=== PATIENT | male | born 2000 | race American Indian/Alaskan Native ===

== ENCOUNTER 2022-06-05 18:13 | Emergency (ER) | payer SELFPAY ==
[2022-06-05 20:28] LABS: Color,Urine Yellow (Yellow)
[2022-06-05 20:29] LABS: Bilirubin,Urine Negative (Negative); Blood,Urine Negative (Negative); Urobilinogen,Urine 0.2 mg/dL (<2.0)
[2022-06-05 20:33] LABS: Bacteria,Urine 2+ /HPF (Negative); Granular Casts,Urine 16 /LPF; Hyaline Casts,Urine 1 /LPF; Mucus,Urine 3+ /HPF; Sperm,Urine 2+ /HPF (NP)
[2022-06-05 20:38] LABS: Amphetamine Screen,Urine Negative; Benzodiazepines Screen,Urine Negative; Cocaine Screen,Urine Negative; Methadone Screen,Urine Negative; Opiate Screen,Urine Negative
[2022-06-05 20:52] LABS: Cannabinoid Screen,Urine Positive
--- NOTE | 2022-06-05 21:48 | Emergency Department Report ---
ED General Adult HPI - General Chief complaint: Psych Stated complaint: PSYCHOSIS BEHAVOIRAL EPISODES Time Seen by Provider: 06/05/22 20:10 Source: patient, EMS Mode of arrival: Stretcher Limitations: No Limitations - History of Present Illness Initial comments: Patient presents to the emergency department for psychosis. Patient states he has a history of schizophrenia and states that his roommates call the paramedics today because he was speaking to people who were not there. Patient states that he has family member speaking to him. Patient also states that he has pain in his penis from a microchip that was placed after his COVID-vaccine 5 years ago. -: unknown Severity scale (0 -10): 0 Consistency: constant Improves with: none Worsens with: none Associated Symptoms: denies other symptoms Treatments Prior to Arrival: none - Related Data Allergies Allergy/AdvReac Type Severity Reaction Status Date / Time No Known Allergies Allergy Verified 06/05/22 18:17 ED Review of Systems ROS: Stated complaint: PSYCHOSIS BEHAVOIRAL EPISODES Other details as noted in HPI Comment: All other systems reviewed and negative Constitutional: denies: chills, fever Eyes: denies: eye pain, eye discharge, vision change ENT: denies: ear pain, throat pain Respiratory: denies: cough, shortness of breath, wheezing Cardiovascular: denies: chest pain, palpitations Endocrine: no symptoms reported Gastrointestinal: denies: abdominal pain, nausea, diarrhea Genitourinary: denies: urgency, dysuria Musculoskeletal: denies: back pain, joint swelling, arthralgia Skin: denies: rash, lesions Neurological: denies: headache, weakness, paresthesias Psychiatric: auditory hallucinations. denies: anxiety, depression, visual hallucinations, homicidal thoughts, suicidal thoughts Hematological/Lymphatic: denies: easy bleeding, easy bruising ED Past Medical Hx - Social History Smoking Status: Current Every Day Smoker Substance Use Type: Marijuana ED Physical Exam - General Limitations: No Limitations General appearance: alert, in no apparent distress - Head Head exam: Present: atraumatic, normocephalic - Eye Eye exam: Present: normal appearance, PERRL, EOMI - ENT ENT exam: Present: mucous membranes moist - Neck Neck exam: Present: normal inspection - Respiratory Respiratory exam: Present: normal lung sounds bilaterally. Absent: respiratory distress - Cardiovascular Cardiovascular Exam: Present: regular rate, normal rhythm. Absent: systolic murmur, diastolic murmur, rubs, gallop - GI/Abdominal GI/Abdominal exam: Present: soft, normal bowel sounds. Absent: distended, tenderness - Rectal Rectal exam: Present: deferred - Extremities Exam Extremities exam: Present: normal inspection - Back Exam Back exam: Present: normal inspection - Neurological Exam Neurological exam: Present: alert, oriented X3, CN II-XII intact. Absent: motor sensory deficit - Psychiatric Psychiatric exam: Present: normal affect, normal mood - Skin Skin exam: Present: warm, dry, intact, normal color. Absent: rash ED Course Vital Signs 06/05/22 06/05/22 18:15 19:57 Temperature 98.9 F 98.7 F Pulse Rate 80 101 H Respiratory 18 18 Rate Blood Pressure 140/86 113/69 [Left] O2 Sat by Pulse 96 98 Oximetry ED Medical Decision Making - Lab Data Result diagrams: 06/05/22 21:17 06/05/22 21:17 Lab Results 06/05/22 06/05/22 Range/Units Unknown Unknown Urine Color Yellow (Yellow) Urine Turbidity Clear (Clear) Urine pH 7.0 (5.0-7.0) Ur Specific [place] 1.015 (1.003-1.030) Urine Protein 30 mg/dl (Negative) mg/dL Urine Glucose (UA) Negative (Negative) mg/dL Urine Ketones Negative (Negative) mg/dL Urine Blood Negative (Negative) Urine Nitrite Negative (Negative) Urine Bilirubin Negative (Negative) Urine Urobilinogen 0.2 (<2.0) mg/dL Ur Leukocyte Esterase Negative (Negative) Urine WBC (Auto) 6.0 (0.0-6.0) /HPF Urine RBC (Auto) 45.0 (0.0-6.0) /HPF U Epithel Cells (Auto) < 1.0 (0-13.0) /HPF Urine Bacteria (Auto) 2+ (Negative) /HPF Hyaline Casts 1 /LPF Granular Casts 16 /LPF Urine Mucus 3+ /HPF Urine Yeast (Budding) 1+ /HPF Urine Sperm 2+ (RING PACKER) /HPF Urine Opiates Screen Negative Urine Methadone Screen Negative Ur Barbiturates Screen Negative Ur Phencyclidine Scrn Negative Ur Amphetamines Screen Negative U Benzodiazepines Scrn Negative Urine Cocaine Screen Negative U Marijuana (THC) Screen Positive Drugs of Abuse Note Disclamer - Medical Decision Making 1013 applied ED hold applied Patient is medically cleared Awaiting mental health evaluation Critical care attestation.: If time is entered above; I have spent that time in minutes in the direct care o f this critically ill patient, excluding procedure time. ED Disposition Clinical Impression: Psychosis Disposition: [address] [place] [address] Is pt being admited?: No Does the pt Need Aspirin: No Condition: Stable
[2022-06-05 22:16] LABS: Basophils % (Auto) 0.4 % (0.0-1.8); Eosinophils # (Auto) 0.1 K/mm3 (0.0-0.4); Eosinophils % (Auto) 0.8 % (0.0-4.3); Hematocrit 42.5 % (35.5-45.6); Hemoglobin 14.4 gm/dl (11.8-15.2); Lymphocytes # (Auto) 3.1 K/mm3 (1.2-5.4); Lymphocytes % (Auto) 31.8 % (13.4-35.0); Mean Corpuscular HGB Conc 34 % (32-34); Mean Corpuscular Volume 86 fl (84-94); Monocytes # (Auto) 0.8 K/mm3 (0.0-0.8); Platelet Count 211 K/mm3 (140-440); Red Blood Count 4.95 M/mm3 (3.65-5.03); Red Cell Distribution Width 13.4 % (13.2-15.2)
[2022-06-05 22:45] LABS: Alanine Aminotransferase 20 units/L (7-56); Albumin 4.2 g/dL (3.9-5); BUN/Creatinine Ratio 8; Blood Urea Nitrogen 7 mg/dL (9-20); Calcium 9.3 mg/dL (8.4-10.2); Hemolysis Index 36
[2022-06-05] MEDS ORDERED: ZIPRASIDONE 20 MG CAP PO ONE (23:21)
--- NOTE | 2022-06-06 11:08 | Consultation ---
History of Present Illness - Reason for Consult Consult date: 06/06/22 Reason for consult: psychosis - History of Present Psychiatric Illness The patient was seen today. He is in the seclusion room. The patient's thoughts are disorganized and he is delusional. He is speaking nonsensically. He is responding to internal stimuli. The patient says "I am raping people in my sleep." He is talking about "hearing black wood." It is difficult to understand the patient at times because he is mumbling from time to time. He is able to answer some simple questions. He says he takes Geodon and lives with his family. He then starts rambling nonsensically. Will recommend acute psychiatric inpatient treatment to stabilize the patient on his medications. Spoke to the patient's mom who went over medications and plan. She is requesting the patient go to [facility] because she says this is the facility that helps him. PAST PSYCHIATRIC HISTORY: Unable to assess PAST MEDICAL HISTORY: None reported Family Psychiatric History None reported or documented SOCIAL HISTORY Unable to assess REVIEW OF SYSTEMS Unable to assess MENTAL STATUS Unable to assess Assessment Schizophrenia Bipolar Disorder Treatment Plan 1013 Geodon 20mg po BID Geodon 20mg IM q6h prn agitation Trazodone 50mg po qhs Depakote DR 500mg BID Medical: per primary Sitter: Defer to primary Disposition: Recommend acute psychiatric inpatient treatment Will follow. Thanks Case staffed with Dr. Cabrera Medications and Allergies Allergies Allergy/AdvReac Type Severity Reaction Status Date / Time No Known Allergies Allergy Verified 06/05/22 18:17 Mental Status Exam - Vital signs Last Vital Signs Temp 98.4 F 06/06/22 10:23 Pulse 67 06/06/22 10:23 Resp 16 06/06/22 10:23 BP 127/79 06/06/22 10:23 Pulse Ox 99 06/06/22 10:23 Results Result Diagrams: 06/05/22 21:17 06/05/22 21:17 Abnormal lab results 06/05/22 06/05/22 06/05/22 Range/Units 21:17 21:17 21:17 [place] % (Auto) 8.0 H (0.0-7.3) % BUN 7 L (9-20) mg/dL Salicylates < 0.3 L (2.8-20.0) mg/dL Acetaminophen (10.0-30.0) ug/mL 06/05/22 Range/Units 21:17 [place] % (Auto) (0.0-7.3) % BUN (9-20) mg/dL Salicylates (2.8-20.0) mg/dL Acetaminophen 5.0 L (10.0-30.0) ug/mL All other labs normal.
--- NOTE | 2022-06-06 11:26 | Event Note ---
Date: 06/06/22 vss , stayed in seclusion room, medically cleared, awaiting transfer
[2022-06-06] MEDS: DIVALPROEX DR 500 MG TAB PO SCH ×2 (12:07→22:41)
[2022-06-06] MEDS: ZIPRASIDONE MESYLATE 20 MG VIAL IM PRN ×2 (13:35→20:41)
[2022-06-06] MEDS: ZIPRASIDONE 20 MG CAP PO SCH (22:37)
[2022-06-06] MEDS: traZODone 50 MG TAB PO SCH (22:41)
[2022-06-07] MEDS: ZIPRASIDONE 20 MG CAP PO SCH ×2 (09:34→22:00)
[2022-06-07] MEDS: DIVALPROEX DR 500 MG TAB PO SCH ×2 (09:34→22:00)
--- NOTE | 2022-06-07 11:04 | Emergency Department Report ---
Blank Doc - Documentation Documentation: No new events overnight awaiting disposition
--- NOTE | 2022-06-07 15:21 | Progress Note ---
Subjective - Reason for Consult Consult date: 06/07/22 Reason for consult: psychosis - Chief Complaint Chief complaint: The patient was seen today. He continues to be disorganized. The patient presents with auditory hallucinations " voices saying to save [place]." REVIEW OF SYSTEMS Unable to assess MENTAL STATUS Unable to assess Assessment Schizophrenia Bipolar Disorder Treatment Plan 1013 Geodon 20mg po BID Geodon 20mg IM q6h prn agitation Trazodone 50mg po qhs Depakote DR 500mg BID Medical: per primary Sitter: Defer to primary Disposition: Recommend acute psychiatric inpatient treatment Will follow. Thanks Case staffed with Dr. Cabrera Medications and Allergies Mental Status Exam - Vital signs Last Vital Signs Temp 98.3 F 06/07/22 03:45 Pulse 64 06/07/22 03:45 Resp 16 06/07/22 03:45 BP 102/72 06/07/22 03:45 Pulse Ox 100 06/07/22 10:56
[2022-06-07] MEDS: traZODone 50 MG TAB PO SCH (22:00)
[2022-06-08 08:38] VITALS: BP 100/50
[2022-06-08] MEDS: ZIPRASIDONE 20 MG CAP PO SCH (09:59)
[2022-06-08] MEDS: DIVALPROEX DR 500 MG TAB PO SCH (09:59)
--- NOTE | 2022-06-08 11:36 | Event Note ---
Date: 06/08/22 Chart reviewed. No events overnight. Pt is calm, cooperative. Pt is currently awaiting placement by psychiatry.
== END 2022-06-08 14:25 ==
LOC: ED 18:13 → EEVIPCON 18:13 → ED 06-08 14:25
DX: F29 Unspecified psychosis not due to a substance or known physiological condition (principal); Z79.899 Other long term (current) drug therapy
CPT/HCPCS: 36415; 80053; 80307; 81001; 85025; 96372; 99285; J3486; 80320; G0480; U0003